=== PATIENT | male | born 1965 | race Caucasian/White ===

== ENCOUNTER 2018-04-15 20:05 | Emergency (ER) | payer OTHER ==
[2018-04-15] MEDS ORDERED: KETOROLAC 15 MG/1 ML SDV IM ONE (20:29)
[2018-04-15] MEDS ORDERED: GABAPENTIN 300 MG CAP PO ONE (20:29)
[2018-04-15] MEDS ORDERED: CYCLOBENZAPRINE 10 MG TAB PO ONE (20:29)
[2018-04-15] MEDS ORDERED: ACETAMINOPHEN 500 MG TAB PO ONE (20:29)
[2018-04-15] MEDS ORDERED: LIDOCAINE 4%/MENTHOL 1% PATCH TD ONE (20:30)
[2018-04-15] MEDS ORDERED: DEXAMETHASONE 4 MG/ML VIAL PO ONE (20:30)
[2018-04-15] MEDS ORDERED: DEXAMETHASONE 4 MG TAB ONE (20:34)
--- NOTE | 2018-04-15 20:35 | EDPHY ---
H & P Stated Complaint: L hip pain 11/20 radiating to LLE x 24 hours. CMS intact. Time Seen by Provider: 04/15/18 20:28 HPI/ROS: CHIEF COMPLAINT: Left buttock and leg pain HISTORY OF PRESENT ILLNESS: 52-year-old male presents emergency department reporting that yesterday afternoon and early evening he began to develop pain which feels like it starts deep in his left buttock and radiates deep into his left posterior thigh. He really denies any radicular symptoms coming into the thigh or leg. Pain feels like a shooting sensation. He reports it feels like it starts "deep" in his pelvis. Some discomfort when he walks, bears weight on it, sits, or lays down. He had to sleep last night in a chair. He denies any trauma, or twisting mechanism. He denies any fevers or chills, chest pain, shortness of breath, vomiting, diarrhea, or urinary complaints. He denies any discomfort extending below the level of the knee. Patient denies any urinary difficulties, incontinence, or constipation. No fever. No rectal pain. No history of IV drug use. He has taken Advil for the discomfort and also saw a walk-in chiropractor today. REVIEW OF SYSTEMS: A comprehensive 10 system review of systems was reviewed and is otherwise negative aside from elements mentioned in the history of present illness and medical decision making. PAST MEDICAL HISTORY: Asthma, on Advair. SOCIAL HISTORY: Here with his . VITAL SIGNS Reviewed by me. GENERAL: Well-developed, well-nourished, uncomfortable appearing. Moving slowly HEENT: Benign exam. LUNGS: Clear to auscultation bilaterally, no wheezes, rhonchi or rales. CARDIAC: Regular rate and rhythm, no rubs, murmurs or gallops. ABDOMEN: Soft, nontender, nondistended, bowel sounds normal. Back: No CVA tenderness. No midline tenderness palpation. No significant paraspinous tenderness noted. Patient indicates that the pain starts deep in the lateral left buttock area. Neurological exam: Straight leg raise test is negative bilaterally. Hip flexion on the left is 4+ over 5 secondary to pain in the back., Knee extension , knee flexion, dorsiflexion and plantar flexion are 5/ 5 bilaterally. EHL 5 over 5. Sensation is intact to light touch throughout. 2+ knee and ankle jerk bilaterally. Vascular exam: Dorsalis pedis and posterior tibial pulses are intact. Brisk capillary refill. EXTREMITIES: No trauma. No edema. Range of motion is normal throughout. NEURO: Alert and oriented, grossly nonfocal. SKIN: Warm and dry, no rash. PSYCHIATRIC: Normal mentation, no agitation. - Personal History Current Tetanus Diphtheria and Acellular Pertussis (TDAP): Yes - Medical/Surgical History Hx Asthma: Yes Other PMH: ASTHMA - Social History Smoking Status: Never smoked Constitutional: Initial Vital Signs Temperature (C) 36.9 C 04/15/18 20:18 Heart Rate 85 04/15/18 20:18 Respiratory Rate 16 04/15/18 20:18 Blood Pressure 172/85 H 04/15/18 20:18 O2 Sat (%) 94 04/15/18 20:18 O2 Delivery Mode Room Air Allergies/Adverse Reactions: No Known Allergies Allergy (Unverified 04/15/18 20:18) Home Medications: Medication Instructions Recorded Advair 250/50 (RX) 03/14/15 Cyclobenzaprine [Flexeril 10 MG 10 mg PO TID PRN #20 tab 04/15/18 (RX)] Gabapentin [Neurontin 300 MG (*)] 300 mg PO HS #10 cap 04/15/18 methylPREDNISolone [Medrol Dose 4 mg PO DAILY #1 each 04/15/18 Thang] Medical Decision Making ED Course/Re-evaluation: Patient received the following treatments: Toradol IM, Flexeril p.o., Tylenol p.o., Decadron p.o., gabapentin p.o., and a lidocaine patch. Approximately 20 min after receiving these medications, the patient walked to the waiting room and reported that he was feeling better and wished to go. He still has some discomfort when he bears weight but overall is improved. He was discharged with information regarding pain control with Tylenol, ibuprofen, lidocaine patches, and ice. Muscle relaxant with Flexeril. Medrol Dosepak to be used if needed if he continues to have pain for the next several days. And lastly was given a prepack of hydrocodone, #6, to use if needed for severe pain preventing him from sleeping tonight. He will follow up with his primary care physician. Differential Diagnosis: After history was obtained and physical exam performed, the differential for back pain was considered including but not limited to muscular pain, herniated disc, spine fracture, intra-abdominal causes, and urinary tract infection. - Data Points Medications Given: Discontinued Medications Acetaminophen (Tylenol) 1,000 mg PO EDNOW ONE Stop: 04/15/18 20:30 Last Admin: 04/15/18 20:39 Dose: 1,000 mg Hydrocodone Bitart/Acetaminophen ([place] 5/325mg Prepack#6) 1 btl TAKEHOME EDNOW ONE Stop: 04/15/18 21:09 Last Admin: 04/15/18 21:14 Dose: 1 btl Cyclobenzaprine HCl (Flexeril) 10 mg PO EDNOW ONE Stop: 04/15/18 20:30 Last Admin: 04/15/18 20:40 Dose: 10 mg Cyclobenzaprine HCl (Flexeril 10 Mg Prepack#3) 1 btl TAKEHOME EDNOW ONE Stop: 04/15/18 21:10 Last Admin: 04/15/18 21:15 Dose: 1 btl Dexamethasone (Decadron Injection) 8 mg PO EDNOW ONE Stop: 04/15/18 20:31 Last Admin: 04/15/18 20:49 Dose: Not Given Dexamethasone (Decadron) 8 mg PO EDNOW ONE Stop: 04/15/18 20:50 Last Admin: 04/15/18 20:50 Dose: 8 mg Gabapentin (Neurontin) 600 mg PO EDNOW ONE Stop: 04/15/18 20:30 Last Admin: 04/15/18 20:39 Dose: 600 mg Ketorolac Tromethamine (Toradol) 30 mg IM EDNOW ONE Stop: 04/15/18 20:30 Last Admin: 04/15/18 20:41 Dose: 30 mg Miscellaneous Information (Patch Removal) 1 ea TD DAILY21 RUKHSANA Stop: 10/12/18 20:59 Last Admin: 04/15/18 21:22 Dose: Not Given Miscellaneous Medication (Icy Hot Lidocaine/Menthol 4%/1% Patch) 1 patch TD EDNOW ONE Stop: 04/15/18 20:31 Last Admin: 04/15/18 20:42 Dose: 1 patch Departure - Departure Disposition: Home, Routine, Self-Care Clinical Impression: Left buttock pain Back pain Qualifiers: Back pain location: back pain in unspecified location Chronicity: acute Back pain laterality: left Qualified Code(s): M54.9 - Dorsalgia, unspecified Condition: Good Instructions: Hydrocodone/Acetaminophen (By mouth), Cyclobenzaprine (By mouth) , Lumbar Radiculopathy (ED), Piriformis Syndrome (ED), Lower Back Exercises (ED) Additional Instructions: Musculoskeletal pain is often treated with anti-inflammatories, muscle relaxants , and pain medications. 1. I recommend Ibuprofen (Motrin, Advil) for pain and anti-inflammatory effects. Your dose is: Ibuprofen 600 mg every 6-8 hours with food. You have also been given a prescription for a Medrol Dosepak to use as directed to treat inflammation. Please begin taking this tomorrow. 2. For muscle relaxation, you been given a prescription of Flexeril. Please take this as directed. It may make you sleepy. 3. For pain relief, I suggest high-dose Tylenol (650mg-1000mg of Tylenol) up to 3 times a day. Not exceed 3000 mg in a 24 hour period. I also suggest lidocaine patches. 4% lidocaine patches are available over-the- counter. Apply ice for 20-30 minutes every 2-3 hours for the next 48 hours. After 48 hours, a heating pad or hot tub may feel better. Please follow up with your primary care physician if you're not improving as expected in the next several days. Consider physical therapy or chiropractic followup for persistent discomfort. Return to the emergency department if you experience significantly worsening pain, pain radiating into the legs, weakness, numbness or tingling, difficulties with bowel or bladder, fever, nausea, vomiting, or other concerns. Referrals: Jonathan Lewis MD [Primary Care Provider] - As per Instructions Prescriptions: Cyclobenzaprine [Flexeril 10 MG (RX)] 10 mg PO TID PRN #20 tab PRN Reason: Muscle Spasms Gabapentin [Neurontin 300 MG (*)] 300 mg PO HS #10 cap methylPREDNISolone [Medrol Dose Thang] 4 mg PO DAILY #1 each
[2018-04-15] MEDS ORDERED: DEXAMETHASONE 4 MG TAB PO ONE (20:49)
[2018-04-15] MEDS ORDERED: PATCH REMOVAL 1 EA PATCH TD SCH (21:00)
[2018-04-15] MEDS ORDERED: HYDROCOD/APAP 5/325 PREPACK#6 BTL TAKEHOME ONE (21:08)
[2018-04-15] MEDS ORDERED: CYCLOBENZAPRINE 10MG PREPACK#3 BTL TAKEHOME ONE (21:09)
[2018-04-15 21:32] VITALS: BP 152/78
== END 2018-04-15 21:15 | disposition home or self-care (01) ==
LOC: CED 20:05
DX: M54.42 Lumbago with sciatica, left side (principal)
CPT/HCPCS: 96372-ER; 99284-ER; J1100; J1885

== ENCOUNTER → 2018-04-30 | Outpatient (CLI) | payer OTHER | LOC: CIMAGING 14:40 | PROVIDERS: ATTEND Family Medicine | DX: M54.16 Radiculopathy, lumbar region (principal) | CPT/HCPCS: 72100-PO ==